=== PATIENT | male | born 1955 | race Caucasian/White ===

== ENCOUNTER 2021-03-16 13:36 | Emergency (ER) | payer BC ==
[2021-03-16] MEDS ORDERED: TETANUS & DIPHTHERIA TOX,ADULT 0.5 ML VIAL ONE (13:58)
[2021-03-16] MEDS ORDERED: LIDOCAINE 1% MPF 5 ML VIAL ONE (13:58)
--- NOTE | 2021-03-16 15:01 | ER ---
Nurse's Notes [facility] Name: Rafiq Borges Age: 65 yrs Sex: Male : 1955 Arrival Date: 03/16/2021 Time: 13:39 Bed 4 Private MD: Diagnosis: Laceration without foreign body of lip;Laceration without foreign body of nose;Abrasion of right front wall of thorax;Abrasion of left forearm Presentation: 03/16 13:42 Chief complaint: Patient states: was cutting a tree a chainsaw and the limb hit pt vg1 below the nose and under right side of lip; also states was hit in the chest with the limb. Incident occurred about an hour ago. Coronavirus screen: Vaccine status: Patient reports receiving the 2nd dose of the covid vaccine. Client denies travel out of the [place] in the last 14 days. Ebola Screen: Patient negative for fever greater than or equal to 101.5 degrees Fahrenheit, and additional compatible Ebola Virus Disease symptoms. Initial Sepsis Screen: Does the patient meet any 2 criteria? HR > 90 bpm. Does the patient have a suspected source of infection? No. Patient's initial sepsis screen is negative. Risk Assessment: Do you want to hurt yourself or someone else? Patient reports no desire to harm self or others. Onset of symptoms was March 16, 2021. 13:42 Method Of Arrival: Ambulatory vg1 13:42 Acuity: MARCOS 4 vg1 Triage Assessment: 13:45 General: Appears uncomfortable, Behavior is calm, cooperative. Pain: Denies pain. Derm: vg1 laceration to right side of nose and below bottom lip. Historical: - Allergies: 13:45 No Known Allergies; vg1 - Home Meds: 13:45 losartan oral [Active]; atorvastatin oral [Active]; vg1 - PMHx: 13:45 Hypertensive disorder; Hypercholesterolemia; vg1 - PSHx: 13:45 Appendectomy; vg1 - Immunization history:: Client reports receiving the 2nd dose of the Covid vaccine. - Social history:: Smoking status: Patient denies any tobacco usage or history of. Patient uses alcohol, occasionally. Screenin:19 Abuse screen: Denies threats or abuse. Denies injuries from another. Nutritional ph screening: No deficits noted. Tuberculosis screening: No symptoms or risk factors identified. Fall Risk None identified. Assessment: 14:12 General: Appears in no apparent distress. well groomed, Behavior is calm, cooperative, ph appropriate for age. Pain: Complains of pain in right cheek. Neuro: Level of Consciousness is awake, alert, obeys commands, Oriented to person, place, time, situation. Cardiovascular: Capillary refill < 3 seconds in bilateral fingers Patient's skin is warm and dry. Respiratory: Airway is patent Respiratory effort is even, unlabored. Derm: Skin is healthy with good turgor, Skin is pink, warm \T\ dry. Musculoskeletal: Circulation, motion, and sensation intact. Range of motion: intact in all extremities. Injury Description: Abrasion sustained to palmar aspect of left forearm Laceration sustained to upper vermilion border and lower vermilion border. 14:14 Injury Description: Abrasion sustained to anterior aspect of right upper chest. ph Vital Signs: 13:42 BP 164 / 105; Pulse 114; Resp 17; Temp 98.2; Pulse Ox 99% ; Weight 81.65 kg; Height 5 vg1 ft. 6 in. (167.64 cm); Pain 0/10; 13:42 Body Mass Index 29.05 (81.65 kg, 167.64 cm) vg1 ED Course: 13:39 Patient arrived in ED. rg4 13:45 Susan Kaufman FNP-C is [facility]. kb 13:45 Igor Eli MD is Attending Physician. kb 13:45 Triage completed. vg1 13:45 Arm band placed on. vg1 13:55 Caitie Clark, RN is Primary Nurse. ph 14:19 Patient has correct armband on for positive identification. Bed in low position. Call ph light in reach. Side rails up X 1. Pulse ox on. NIBP on. Door closed. Noise minimized. Warm blanket given. 14:45 No provider procedures requiring assistance completed. Assist provider with laceration jl7 repair on mouth that was between 2.6 to 7.5 cm using sutures. Set up tray. Performed by Susan COUGHLIN Patient tolerated well. IV discontinued, intact, bleeding controlled, No redness/swelling at site. Pressure dressing applied. 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 Exp: ph 07/06/2022. Lot #: [id number]. } Route: IM; Site: left deltoid; 15:00 Follow up: Response: No adverse reaction ph 14:50 Drug: Lidocaine (1 %) 1 vials Volume: 5 ml; Route: Infiltration; ph 15:00 Follow up: Response: No adverse reaction ph Outcome: 15:00 Discharge ordered by . rani 15:10 Discharged to home ambulatory, with family. jl7 15:10 Condition: stable 15:10 Discharge instructions given to patient, Instructed on discharge instructions, follow up and referral plans. Demonstrated understanding of instructions, follow-up care. 15:18 Patient left the ED. ph Signatures: Susan Kaufman, PIG FURNACE OPERATOR-C PIG FURNACE OPERATOR-CkCaitie Phillips RN RN Mireya Amin Jahala RN RN jl7 Maegan Man RN RN vg1
--- NOTE | 2021-03-16 15:01 | EDPHYS ---
Physician Documentation [facility] Name: Rafiq Borges Age: 65 yrs Sex: Male : 1955 Arrival Date: 03/16/2021 Time: 13:39 Bed 4 Private MD: ED Physician Igor Eli HPI: 03/16 13:46 This 65 yrs old Male presents to ER via Ambulatory with complaints of Laceration to kb Face. 13:46 The patient has a laceration related to: doing yard work, occurred at home, outdoors, kb and there are no complicating factors. The injury was accidental. Onset: The symptoms/episode began/occurred at 12:30. Associated signs and symptoms: The patient has no apparent associated signs or symptoms. The patient has not experienced similar symptoms in the past. The patient has not recently seen a physician. Pt was cutting limbs and one hit him in the face, chest and left arm. . Historical: - Allergies: 13:45 No Known Allergies; vg1 - Home Meds: 13:45 losartan oral [Active]; atorvastatin oral [Active]; vg1 - PMHx: 13:45 Hypertensive disorder; Hypercholesterolemia; vg1 - PSHx: 13:45 Appendectomy; vg1 - Immunization history:: Client reports receiving the 2nd dose of the Covid vaccine. - Social history:: Smoking status: Patient denies any tobacco usage or history of. Patient uses alcohol, occasionally. ROS: 13:46 Constitutional: Negative for fever, chills, and weight loss. kb 13:46 Skin: Positive for abrasion(s), of the chest and palmar aspect of left forearm. 13:46 Skin: Positive for laceration(s), of the philtrum and lower vermilion border. 13:46 All other systems are negative. Exam: 13:48 Constitutional: This is a well developed, well nourished patient who is awake, alert, kb and in no acute distress. ENT: Moist Mucous membranes Respiratory: Respirations even and unlabored. No increased work of breathing. Talking in full sentences MS/ Extremity: Pulses equal, no cyanosis. Neurovascular intact. Full, normal range of motion. Neuro: Awake and alert, GCS 15, oriented to person, place, time, and situation. Moves all extremities. Normal gait. Psych: Awake, alert, with orientation to person, place and time. Behavior, mood, and affect are within normal limits. 13:48 Chest/axilla: Inspection: abrasion, that is mild, that is moderate, of the anterior aspect of right upper chest and right breast 13:48 Musculoskeletal/extremity: Extremities: grossly normal except: noted in the palmar aspect of left forearm: abrasion. 13:48 Skin: injury, laceration(s), the wound is approximately 3 cm(s), of the lower vermilion border, the second wound is approximately 3 cm(s), of the philtrum, laceration between nose and upper lip on right side is well approximated and requires no closure. , that can be described as clean, no foreign body, linear, without bleeding. Vital Signs: 13:42 BP 164 / 105; Pulse 114; Resp 17; Temp 98.2; Pulse Ox 99% ; Weight 81.65 kg; Height 5 vg1 ft. 6 in. (167.64 cm); Pain 0/10; 13:42 Body Mass Index 29.05 (81.65 kg, 167.64 cm) vg1 Laceration: 14:59 Wound Repair of 3cm ( 1.2in ) subcutaneous laceration to lower vermilion border. kb Irregularly shaped.. Distal neuro/vascular/tendon intact. Anesthesia: Wound infiltrated with 3 mls of 1% lidocaine. Wound prep: Extensive cleansing with hibiclenz by me, Wound irrigation with saline by me. Skin closed with 8 5-0 fast absorbing gut using simple sutures and sterile technique. Patient tolerated well. MDM: 13:45 Patient medically screened. kb 13:50 Data reviewed: vital signs, nurses notes. Data interpreted: Pulse oximetry: on room air kb is 99 %. Interpretation: normal. 14:59 Counseling: I had a detailed discussion with the patient and/or guardian regarding: the kb historical points, exam findings, and any diagnostic results supporting the discharge/admit diagnosis, the need for outpatient follow up, a family practitioner, to return to the emergency department if symptoms worsen or persist or if there are any questions or concerns that arise at home. 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 Exp: ph 07/06/2022. Lot #: [id number]. } Route: IM; Site: left deltoid; 15:00 Follow up: Response: No adverse reaction ph 14:50 Drug: Lidocaine (1 %) 1 vials Volume: 5 ml; Route: Infiltration; ph 15:00 Follow up: Response: No adverse reaction ph Disposition: 03/17 13:23 Co-signature as Attending Physician, Igor Eli MD I agree with the assessment and kailee plan of care. Disposition Summary: 03/16/21 15:00 Discharge Ordered Location: Home kb Condition: Stable kb Diagnosis - Laceration without foreign body of lip kb - Laceration without foreign body of nose kb - Abrasion of right front wall of thorax kb - Abrasion of left forearm kb Followup: kb - With: Emergency Department - When: As needed - Reason: Worsening of condition Followup: kb - With: Private Physician - When: 2 - 3 days - Reason: Recheck today's complaints, Continuance of care, Re-evaluation by your physician Discharge Instructions: - Discharge Summary Sheet kb - Laceration Care, Adult, [id number] kb - Facial Laceration, [id number] kb Forms: - Medication Reconciliation Form kb - Thank You Letter kb - Antibiotic Education kb - Prescription Opioid Use kb Signatures: Susan Kaufman FNP-C WILI-Igor Campbell MD MD cha Hall, Patricia, RN RN Maegan Man, RN RN vg1
[2021-03-16 15:45] VITALS: BP 164/105; TEMP 98.2; O2SAT 99
== END 2021-03-16 15:18 | disposition home or self-care (01) ==
LOC: ER 13:36
PROC: 0CQ1XZZ Repair Lower Lip, External Approach (ICD-10-PCS; principal; 2021-03-16)
DX: S01.511A Laceration without foreign body of lip, initial encounter (principal); S01.21XA Laceration without foreign body of nose, initial encounter; S20.311A Abrasion of right front wall of thorax, initial encounter; S50.812A Abrasion of left forearm, initial encounter; W22.8XXA Striking against or struck by other objects, initial encounter; Z23 Encounter for immunization; I10 Essential (primary) hypertension; E78.00 Pure hypercholesterolemia, unspecified
CPT/HCPCS: 90471; 90714; 99283